=== PATIENT | male | born 2000 | race Caucasian/White ===

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

== ENCOUNTER 2022-05-24 16:09 | Emergency (ER) | payer BC ==
[2022-05-24] MEDS ORDERED: BUDESONIDE-FO10.2 GM IH (16:18)
[2022-05-24] MEDS ORDERED: PROAIR HFA0.09 MG/AC IH (16:18)
[2022-05-24 16:35] LABS: BASO # 0.01 K/mm3 (0.02-0.10); EOS # 0.53 K/mm3 (0.04-0.40); HEMATOCRIT 42.9 % (42.0-52.0); HEMOGLOBIN 15.2 g/dL (13.5-18.0); LYMPH# 1.72 K/mm3 (1.50-4.00); MEAN CELL VOLUME 80 fl (78-100); MEAN CORPUSCULAR HEMOGLOBIN 28 pg (27-31); MEAN CORPUSCULAR HGB CONC 35 g/dL (33-37); MONO # 0.41 K/mm3 (0.20-0.80); NEU # 3.94 K/mm3 (1.40-6.50); PLATELET COUNT 228 K/mm3 (130-400); RED BLOOD COUNT 5.38 M/mm3 (4.20-5.60); RED CELL DISTRIBUTION WIDTH 11.6 % (11.5-14.5); WHITE BLOOD COUNT 6.6 K/mm3 (4.8-10.8)
[2022-05-24 16:52] LABS: SODIUM 141 mmol/L (136-145)
[2022-05-24 16:53] LABS: ALBUMIN 4.6 g/dL (3.5-5.0)
[2022-05-24 16:54] LABS: CALCIUM 9.6 mg/dL (8.3-10.5)
[2022-05-24 16:55] LABS: TOTAL PROTEIN 7.5 g/dL (6.4-8.3)
[2022-05-24 16:56] LABS: CARBON DIOXIDE 22 mmol/L (22-29); GLUCOSE 103 mg/dL (75-110)
[2022-05-24 16:57] LABS: TOTAL BILIRUBIN 0.7 mg/dL (0.2-1.2)
[2022-05-24 17:00] LABS: AST-SGOT 25 U/L (5-34)
[2022-05-24 17:03] LABS: ALT/SGPT 42 U/L (0-55)
[2022-05-24 17:10] LABS: TROPONIN-I < 0.030 ng/mL (<0.030)
[2022-05-24] MEDS ORDERED: PREDNISONE20 M1 PO (18:12)
[2022-05-24] MEDS ORDERED: ATROVENT HFA IH (18:15)
[2022-05-24 18:27] VITALS: BP 133/75
== END 2022-05-24 18:28 | disposition home or self-care (01) ==
LOC: ED 16:09
PROVIDERS: Nurse Practitioner
DX: J45.901 Unspecified asthma with (acute) exacerbation (principal); R94.6 Abnormal results of thyroid function studies; F17.290 Nicotine dependence, other tobacco product, uncomplicated; Z20.822 Contact with and (suspected) exposure to COVID-19; Z28.310 Unvaccinated for COVID-19
CPT/HCPCS: J7512